=== PATIENT | male | born 1955 | race Caucasian/White ===

== ENCOUNTER 2022-04-23 17:49 | Emergency (ER) | payer OTHER ==
[~2022-04-23] VITALS: Ht 175.3 cm; Wt 96.0 kg
[2022-04-23 18:40] VITALS: BP 115/76
[2022-04-23 19:26] LABS: Basophils # (auto) 0 10 ^3/uL (0-0.2); Basophils % (auto) 0.5 % (0.0-2.0); Eosinophils # (auto) 0.2 10 ^3/uL (0-0.8); Eosinophils % (auto) 2.5 % (0.0-7.0); Hematocrit 39.9 % (41.0-53.0); Hemoglobin 14.3 g/dL (13.5-17.5); Lymphocytes # (auto) 2.5 10 ^3/uL (0.4-5.4); Lymphocytes % (auto) 25.6 % (10.0-50.0); Mean Corpuscular Hemoglobin 30.4 pg (28.0-32.0); Mean Corpuscular Volume 84.5 fL (80.0-100.0); Monocytes # (auto) 0.7 10 ^3/uL (0-1.3); Monocytes % (auto) 7.5 % (0.0-12.0); Neutrophils # (auto) 6.2 10 ^3/uL (1.6-8.6); Neutrophils % (auto) 63.9 % (37.0-80.0); Nucleated Red Blood Cells % 1.2 %; Red Blood Cells 4.71 10^6/uL (4.5-5.90); Red Cell Distribution Width 14.6 % (11.8-14.3); White Blood Cell 9.6 10^3/uL (4.4-10.8)
[2022-04-23 19:52] LABS: Potassium 4.5 mmol/L (3.5-5.1)
[2022-04-23 19:59] LABS: Albumin 3.3 g/dL (3.4-5.0); Calcium 9.2 mg/dL (8.5-10.1)
[2022-04-23 20:01] LABS: Bilirubin, Total 1.2 mg/dL (0.2-1.0); Total Protein 7.6 g/dL (6.4-8.2)
[2022-04-24] MEDS ORDERED: AZIT500T66 PO (16:29)
[2022-04-24] MEDS ORDERED: ACET-1080 PO (16:29)
[2022-04-24] MEDS ORDERED: LIDO2SOL23 MT (16:29)
[2022-04-25] MEDS ORDERED: LIDO2SOL23 MT (16:46)
[2022-04-25] MEDS ORDERED: ACET-1080 PO (16:46)
== END 2022-04-24 03:56 | disposition left against medical advice (07) ==
LOC: ER 17:49
DX: R10.33 Periumbilical pain (principal); R05.9 Cough, unspecified; Z53.21 Procedure and treatment not carried out due to patient leaving prior to being seen by health care provider
CPT/HCPCS: 36415; 80053; 85025; 93005

== ENCOUNTER 2022-04-24 14:00 | Emergency (ER) | payer OTHER ==
[~2022-04-24] VITALS: Ht 175.3 cm; Wt 95.7 kg
[2022-04-24 15:02] VITALS: BP 115/74
[2022-04-24] MEDS ORDERED: cefTRIAXone SOD 1,000 MG VL IM ONE (16:00)
[2022-04-24] MEDS ORDERED: ACET-1080 PO (16:29)
[2022-04-24] MEDS ORDERED: LIDO2SOL23 MT (16:29)
[2022-04-24] MEDS ORDERED: AZIT500T66 PO (16:29)
[2022-04-25] MEDS ORDERED: LIDO2SOL23 MT (16:46)
[2022-04-25] MEDS ORDERED: ACET-1080 PO (16:46)
== END 2022-04-24 16:45 | disposition home or self-care (01) ==
LOC: ER 14:00
DX: K42.9 Umbilical hernia without obstruction or gangrene (principal); R59.1 Generalized enlarged lymph nodes; J02.9 Acute pharyngitis, unspecified; J04.0 Acute laryngitis; Z88.0 Allergy status to penicillin
CPT/HCPCS: 74176; 96372; 99285; J0696

== ENCOUNTER 2022-05-02 11:23 | Emergency (ER) | payer OTHER ==
[~2022-05-02] VITALS: Ht 175.3 cm; Wt 95.9 kg
[~2022-05-02 11:23] MED LIST: ACET-1080 PO; AZIT500T66 PO; LIDO2SOL23 MT
[2022-05-02 12:00] VITALS: BP 126/79
[2022-05-02 12:38] LABS: Basophils # (auto) 0 10 ^3/uL (0-0.2); Basophils % (auto) 0.3 % (0.0-2.0); Eosinophils # (auto) 0.2 10 ^3/uL (0-0.8); Eosinophils % (auto) 2.1 % (0.0-7.0); Hemoglobin 13.1 g/dL (13.5-17.5); Lymphocytes # (auto) 1.9 10 ^3/uL (0.4-5.4); Lymphocytes % (auto) 21.9 % (10.0-50.0); Mean Corpuscular Hemoglobin 29.2 pg (28.0-32.0); Mean Corpuscular Hgb Conc. 33.6 g/dL (32.0-36.0); Monocytes # (auto) 0.8 10 ^3/uL (0-1.3); Monocytes % (auto) 8.9 % (0.0-12.0); Neutrophils # (auto) 5.7 10 ^3/uL (1.6-8.6); Neutrophils % (auto) 66.8 % (37.0-80.0); Nucleated Red Blood Cells % 0.4 %; Red Blood Cells 4.49 10^6/uL (4.5-5.90); Red Cell Distribution Width 14.9 % (11.8-14.3); White Blood Cell 8.5 10^3/uL (4.4-10.8)
[2022-05-02 13:30] LABS: Albumin 2.9 g/dL (3.4-5.0); Calcium 9.5 mg/dL (8.5-10.1); Potassium 4.7 mmol/L (3.5-5.1)
[2022-05-02 13:34] LABS: BUN/Creatinine Ratio 24.7; Bilirubin, Total 1.5 mg/dL (0.2-1.0); Total Protein 7.5 g/dL (6.4-8.2)
== END 2022-05-02 20:36 | disposition left against medical advice (07) ==
LOC: ER 11:23
DX: R10.84 Generalized abdominal pain (principal); F17.210 Nicotine dependence, cigarettes, uncomplicated; Z79.2 Long term (current) use of antibiotics; Z79.899 Other long term (current) drug therapy; Z88.0 Allergy status to penicillin
CPT/HCPCS: 36415; 74176; 80053; 83690; 84484; 85025; 93005

== ENCOUNTER 2022-05-19 13:33 | Emergency (ER) | payer OTHER ==
[~2022-05-19] VITALS: Ht 182.9 cm; Wt 100.0 kg
[2022-05-19] MEDS ORDERED: NITROGLYCERIN 0.4 MG SL TAB SL ONE (13:45)
[2022-05-19] MEDS ORDERED: ASPirin 325 MG TAB PO ONE (13:45)
[2022-05-19 14:04] LABS: Hemoglobin 10.9 g/dL (13.5-17.5); Mean Corpuscular Hemoglobin 29.2 pg (28.0-32.0); Mean Corpuscular Hgb Conc. 34.1 g/dL (32.0-36.0); Mean Corpuscular Volume 85.7 fL (80.0-100.0); Red Blood Cells 3.74 10^6/uL (4.5-5.90); Red Cell Distribution Width 15.3 % (11.8-14.3)
[2022-05-19 14:35] LABS: Albumin 3.1 g/dL (3.4-5.0); Calcium 8.6 mg/dL (8.5-10.1); Potassium 4.1 mmol/L (3.5-5.1)
[2022-05-19 14:38] LABS: BUN/Creatinine Ratio 22.6; Bilirubin, Total 1.2 mg/dL (0.2-1.0); Total Protein 6.8 g/dL (6.4-8.2)
[2022-05-19 15:04] LABS: Basophils % (manual) 0 (0.0-2.0); Blast Cells 0; Metamyelocytes % 0; Myelocytes % 0; Promyelocytes % 0
[2022-05-19] MEDS ORDERED: ENOXAPARIN SOD 100 MG/1 ML SYRINGE SC ONE (15:30)
[2022-05-19] MEDS ORDERED: IOHEXOL 350 MG/ML 100ML IJ ONE (15:35)
[2022-05-19 16:01] LABS: Band Neutrophils % (manual) 10; Lymphocytes % (manual) 32 (10.0-50.0)
[2022-05-19 16:02] LABS: Eosinophils % (manual) 1 (0-7); Monocytes % (manual) 10 (0-12); Reactive Lymphocytes 2
[2022-05-20 10:13] VITALS: BP 105/67
== END 2022-05-20 09:10 | disposition home or self-care (01) ==
LOC: ER 13:33 → EDBD 13:33 → ER 05-20 09:10
DX: I24.9 Acute ischemic heart disease, unspecified (principal); J44.9 Chronic obstructive pulmonary disease, unspecified; F17.210 Nicotine dependence, cigarettes, uncomplicated; Z79.2 Long term (current) use of antibiotics; Z79.899 Other long term (current) drug therapy; Z88.0 Allergy status to penicillin
CPT/HCPCS: 36415; 71045; 71275; 80053; 84484; 85007; 85027; 85379; 93005; 99285; Q9967